=== PATIENT | female | born 1955 | race Caucasian/White ===

== ENCOUNTER 2018-09-27 19:10 | Inpatient (IN) | payer MEDICAID, OTHER ==
[~2018-09-27] VITALS: Ht 152.4 cm; Wt 48.8 kg
[2018-09-27] MEDS ORDERED: methylPREDNISolone SOD SUCC 125 MG/2 ML ONE (19:29)
[2018-09-27] MEDS ORDERED: SODIUM CHLORIDE FLUSH 10ML SYR IVF ONE (19:30)
[2018-09-27] MEDS ORDERED: methylPREDNISolone SOD SUCC 125 MG/2 ML IVP ONE (19:30)
[2018-09-27] MEDS ORDERED: PLEASE ENTER HEIGHT AND WEIGHT MC SCH (19:30)
[2018-09-27] MEDS ORDERED: PLEASE ENTER ALLERGIES MC SCH (19:30)
[2018-09-27] MEDS ORDERED: ALBUTEROL/IPRATROPIUM 2.5MG/0.5MG, 3 ML NPPB SCH (19:30)
[2018-09-27 19:59] LABS: ALANINE AMINOTRANSFERASE 20 U/L (12-78); ALBUMIN 2.2 g/dL (3.4-5.0); CALCIUM 10.4 mg/dL (8.5-10.1); CHLORIDE 114 mmol/L (98-107); CREATININE 1.11 mg/dL (0.55-1.02); INTERNATIONAL NORMALIZED RATIO 1.05 (0.93-1.1); PROTHROMBIN TIME 11.1 Seconds (9.6-11.5)
[2018-09-27] MEDS ORDERED: HYDROcodone/APAP 5/325 TABLET ONE (20:00)
[2018-09-27] MEDS ORDERED: HYDROcodone/APAP 5/325 TABLET PO ONE (20:00)
[2018-09-27 20:03] LABS: ALKALINE PHOSPHATASE 174 U/L (45-117); BILIRUBIN,TOTAL 0.3 mg/dL (0.2-1.0); TOTAL PROTEIN 7.8 g/dL (6.4-8.2)
[2018-09-27 20:08] LABS: MEAN CORPUSCULAR HEMOGLOBIN 24.7 pg (27.0-34.8); MEAN CORPUSCULAR HGB CONC 32.2 g/dL (32.4-35.8); MEAN CORPUSCULAR VOLUME 76.6 fL (80-100); MEAN PLATELET VOLUME 6.5 fL (7.4-10.4); RED BLOOD COUNT 4.13 x10^6/uL (3.82-5.3); RED CELL DISTRIBUTION WIDTH 17.3 % (9.6-15.2)
[2018-09-27 20:12] LABS: ANION GAP 12 mmol/L (5-15)
[2018-09-27 20:13] LABS: PLATELET COUNT 1360 x10^3/uL (130-400)
[2018-09-27] MEDS ORDERED: NS + 40MEQ KCL 1,000 ML IV ONE ×2 (20:18→20:31)
[2018-09-27] MEDS ORDERED: CEFTRIAXONE PMX 1GM/50ML 0 ML ONE (20:21)
[2018-09-27] MEDS ORDERED: POTASSIUM CHLORIDE 20 MEQ TAB.ER.PRT ONE (20:21)
[2018-09-27 20:29] LABS: MD YES
[2018-09-27] MEDS ORDERED: POTASSIUM CHLORIDE 20 MEQ TAB.ER.PRT PO ONE (20:30)
[2018-09-27] MEDS ORDERED: CEFTRIAXONE PMX 1GM/50ML 50 ML IV SCH (20:30)
[2018-09-27] MEDS ORDERED: AZITHROMYCIN 500 MG in SODIUM CHLORIDE 0.9% 250 ML IVPB ONE (20:30)
[2018-09-27 20:33] LABS: BAND#(MANUAL) 0.58 x10^3/uL; BANDS%(MANUAL) 2 % (0-7); LYMPH#(MANUAL) 2.33 x10^3/uL (1-3.4); LYMPHS% (MANUAL) 8 % (22-44); MONOS#(MANUAL) 1.75 x10^3/uL (0.3-2.7); MONOS% (MANUAL) 6 % (2-9); SEG#(MANUAL) 24.44 x10^3/uL (1.8-6.8); SEGS% (MANUAL) 84 % (42-75)
[2018-09-27 20:38] LABS: ANISOCYTOSIS 1+
[2018-09-27 20:39] LABS: MICROCYTOSIS 1+; POLYCHROMASIA 1+
[2018-09-27 20:41] LABS: <PLATELET ESTIMATE> INCREASED; <PLT MORPHOLOGY> NORMAL PLT MORPH
[2018-09-27] MEDS ORDERED: CEFTRIAXONE PMX 1GM/50ML 50 ML ONE (20:48)
[2018-09-27] MEDS ORDERED: SODIUM CHLORIDE FLUSH 10ML SYR IVF PRN (21:00)
[2018-09-27 21:11] LABS: ABSOLUTE RETICS # 0.093 x10^6/uL (0.5-2.5); RED BLOOD COUNT 4.12 x10^6/uL (3.82-5.3); RETICULOCYTE COUNT % 2.26 % (0.5-1.5)
[2018-09-27] MEDS ORDERED: ALBUTEROL/IPRATROPIUM 2.5MG/0.5MG, 3 ML NPPB PRN (21:30)
[2018-09-27] MEDS ORDERED: GUAIFENESIN/COD200MG-20MG/10ML LIQUID PO PRN (21:30)
[2018-09-27] MEDS ORDERED: hydrALAzine 20 MG/ML, 1ML IVPush PRN (21:30)
[2018-09-27] MEDS ORDERED: VANCOMYCIN PER PHARMACY MC PRN (21:30)
[2018-09-27] MEDS ORDERED: DOCUSATE 100 MG CAPSULE PO PRN (21:30)
[2018-09-27] MEDS ORDERED: ONDANSETRON 2MG/ML, 2ML IVPush PRN (21:30)
[2018-09-27] MEDS ORDERED: PHARMACOKINETIC CONSULTATION MC ONE (22:00)
[2018-09-27] MEDS ORDERED: PHARMACOKINETIC MONITORING MC PRN (22:00)
[2018-09-27] MEDS: PIPERACILLIN/TAZO/PMX 3.375GM 50 ML IV SCH (22:37)
[2018-09-27] MEDS: POTASSIUM CHLORIDE 20 MEQ TAB.ER.PRT PO SCH (22:38)
[2018-09-27] MEDS ORDERED: AMLO-150 PO (22:51)
[2018-09-27] MEDS ORDERED: PRED10TA PO (22:51)
[2018-09-27] MEDS ORDERED: ACET325C5 PO (22:51)
[2018-09-27] MEDS ORDERED: VANCOMYCIN 1,000 MG in SODIUM CHLORIDE 0.9% 100 ML IV ONE (23:00)
[2018-09-27] MEDS ORDERED: BUDE10.2 INH (23:03)
[2018-09-27 23:21] VITALS: BP 116/75
[2018-09-28] MEDS: methylPREDNISolone SOD SUCC 125 MG/2 ML IVPush SCH ×4 (00:18→16:49)
[2018-09-28] MEDS: POTASSIUM CHLORIDE 20 MEQ TAB.ER.PRT PO SCH (00:18)
[2018-09-28] MEDS: ACETAMINOPHEN 325 MG TABLET PO PRN (00:46)
[2018-09-28] MEDS ORDERED: POTASSIUM CHLORIDE 20 MEQ TAB.ER.PRT PO ONE ×2 (01:30→09:00)
[2018-09-28] MEDS ORDERED: SODIUM CHLORIDE 0.9% 1,000 ML IV SCH (01:30)
[2018-09-28 01:56] VITALS: BP 108/71
[2018-09-28] MEDS ORDERED: ASA/APAP/ CAFFEINE TABLET PO ONE (02:30)
[2018-09-28] MEDS: ALBUTEROL/IPRATROPIUM 2.5MG/0.5MG, 3 ML NPPB SCH ×6 (03:00→23:00)
[2018-09-28 04:13] LABS: OCCULT BLOOD NEGATIVE (NEGATIVE)
[2018-09-28] MEDS: PIPERACILLIN/TAZO/PMX 3.375GM 50 ML IV SCH ×2 (05:36→08:57)
[2018-09-28 06:26] LABS: MEAN CORPUSCULAR HEMOGLOBIN 25.3 pg (27.0-34.8); MEAN CORPUSCULAR HGB CONC 32.4 g/dL (32.4-35.8); MEAN PLATELET VOLUME 6.4 fL (7.4-10.4); RED BLOOD COUNT 3.47 x10^6/uL (3.82-5.3); RED CELL DISTRIBUTION WIDTH 17.5 % (9.6-15.2)
[2018-09-28 06:28] LABS: PLATELET COUNT 1104 x10^3/uL (130-400)
[2018-09-28 06:35] LABS: ANION GAP 11 mmol/L (5-15); CHLORIDE 117 mmol/L (98-107); CREATININE 1.02 mg/dL (0.55-1.02)
[2018-09-28 06:38] LABS: HCT (SEDRATE) 27.1 % (34.6-47.8)
[2018-09-28 06:39] LABS: HEMOGLOBIN A1C 6.7 % (4.2-6.3)
[2018-09-28 06:45] LABS: THYROID STIMULATING HORMONE 0.228 mIU/L (0.358-3.740)
[2018-09-28 06:49] LABS: BASOPHILS % (AUTO) 0 % (0-1); EOSINOPHILS # (AUTO) 0.01 x10^3/uL (0-0.4); EOSINOPHILS % (AUTO) 0 % (1-7); LYMPHOCYTES # (AUTO) 0.59 x10^3/uL (1-3.4); LYMPHOCYTES % (AUTO) 3 % (22-44); MD SCAN; MONOCYTES # (AUTO) 0.18 x10^3/uL (0.2-0.8); MONOCYTES % (AUTO) 1 % (2-9); NEUTROPHILS # (AUTO) 17.71 x10^3/uL (1.8-6.8); NEUTROPHILS % (AUTO) 96 % (42-75)
[2018-09-28 08:00] VITALS: BP 112/64
[2018-09-28] MEDS: FOLIC ACID 1 MG TABLET PO SCH (08:51)
[2018-09-28] MEDS: MULTIVITAMIN 1 TABLET PO SCH (08:51)
[2018-09-28] MEDS: OXYcodone IR 5MG TABLET PO PRN ×3 (08:51→16:49)
[2018-09-28] MEDS: THIAMINE 100MG TABLET PO SCH (08:52)
[2018-09-28] MEDS ORDERED: POTASSIUM CHLORIDE 40 MEQ in SODIUM CHLORIDE 0.9% 500 ML IV ONE (09:00)
[2018-09-28] MEDS ORDERED: SYMBICORT INH SCH (09:00)
[2018-09-28] MEDS: GABAPENTIN 300 MG CAPSULE PO PRN (10:30)
[2018-09-28] MEDS ORDERED: LORazepam 0.5MG TABLET PO ONE (10:30)
[2018-09-28 12:54] LABS: ANION GAP 11 mmol/L (5-15); CALCIUM 9.1 mg/dL (8.5-10.1); CHLORIDE 121 mmol/L (98-107); CREATININE 0.99 mg/dL (0.55-1.02)
[2018-09-28] MEDS ORDERED: GADOBUTROL 7.5 MMOL/7.5 ML PFS ONE (13:34)
[2018-09-28] MEDS: POTASSIUM CHLORIDE 20 MEQ in LACTATED RINGERS 1,000 ML IV SCH (15:25)
[2018-09-28] MEDS: VANCOMYCIN PMX 1GM/200ML 200 ML IV SCH (15:26)
[2018-09-28 15:30] VITALS: BP 100/68
[2018-09-28] MEDS: MEROPENEM 1 GM in SODIUM CHLORIDE 0.9% 100 ML IV SCH (16:49)
[2018-09-28] MEDS: NEUTRA PHOS K 250 MG TABLET PO SCH ×2 (16:49→20:45)
[2018-09-28 20:00] VITALS: BP 101/65
[2018-09-28 20:01] VITALS: BP 100/63
[2018-09-28 20:02] VITALS: BP 104/67
[2018-09-28] MEDS: AZITHROMYCIN 500 MG in SODIUM CHLORIDE 0.9% 250 ML IV SCH (20:44)
[2018-09-28 21:32] LABS: MICROSCOPIC AUTO
[2018-09-28 21:37] LABS: CULTURE INDICATED? YES
[2018-09-28 21:41] LABS: AMPHETAMINE SCREEN, URINE Negative (Negative); BARBITURATE SCREEN, URINE Negative (Negative); BENZODIAZEPINE SCREEN, URINE Negative (Negative); CANNABINOID SCREEN, URINE Negative (Negative); COCAINE SCREEN, URINE Negative (Negative); METHADONE SCREEN, URINE Negative (Negative); OPIATE SCREEN, URINE Positive (Negative)
[2018-09-28] MEDS ORDERED: DIPHENHYDRAMINE 25 MG CAPSULE PO ONE (22:00)
[2018-09-29] MEDS: methylPREDNISolone SOD SUCC 125 MG/2 ML IVPush SCH ×4 (00:23→17:13)
[2018-09-29] MEDS: OXYcodone IR 5MG TABLET PO PRN ×3 (00:23→17:13)
[2018-09-29] MEDS ORDERED: SODIUM CHLORIDE 0.9% 1,000 ML IV SCH (01:30)
[2018-09-29 01:43] VITALS: BP 102/68
[2018-09-29] MEDS: MEROPENEM 1 GM in SODIUM CHLORIDE 0.9% 100 ML IV SCH ×3 (01:49→22:12)
[2018-09-29] MEDS: ALBUTEROL/IPRATROPIUM 2.5MG/0.5MG, 3 ML NPPB SCH ×6 (03:00→23:00)
[2018-09-29 05:31] LABS: CHLORIDE 118 mmol/L (98-107)
[2018-09-29 05:37] LABS: ANION GAP 12 mmol/L (5-15); CALCIUM 8.2 mg/dL (8.5-10.1); CREATININE 1.29 mg/dL (0.55-1.02)
[2018-09-29 05:39] LABS: MEAN CORPUSCULAR HEMOGLOBIN 25.3 pg (27.0-34.8); MEAN CORPUSCULAR HGB CONC 32.3 g/dL (32.4-35.8); MEAN CORPUSCULAR VOLUME 78.4 fL (80-100); MEAN PLATELET VOLUME 6.6 fL (7.4-10.4); RED BLOOD COUNT 3.17 x10^6/uL (3.82-5.3); RED CELL DISTRIBUTION WIDTH 17.6 % (9.6-15.2)
[2018-09-29 05:48] LABS: PLATELET COUNT 1096 x10^3/uL (130-400)
[2018-09-29 05:58] LABS: MD YES
[2018-09-29 05:59] LABS: ANISOCYTOSIS 1+; LYMPH#(MANUAL) 0.79 x10^3/uL (1-3.4); LYMPHS% (MANUAL) 3 % (22-44); MICROCYTOSIS 1+; MONOS#(MANUAL) 0.26 x10^3/uL (0.3-2.7); MONOS% (MANUAL) 1 % (2-9); SEG#(MANUAL) 25.25 x10^3/uL (1.8-6.8); SEGS% (MANUAL) 96 % (42-75)
[2018-09-29 06:00] LABS: POLYCHROMASIA 1+
[2018-09-29 06:01] LABS: <PLATELET ESTIMATE> INCREASED
[2018-09-29 06:02] LABS: <PLT MORPHOLOGY> NORMAL PLT MORPH
[2018-09-29] MEDS ORDERED: POTASSIUM CHLORIDE 40 MEQ in SODIUM CHLORIDE 0.9% 500 ML IV ONE (07:00)
[2018-09-29 07:44] VITALS: BP 97/66
[2018-09-29] MEDS: POTASSIUM CHLORIDE 20 MEQ in LACTATED RINGERS 1,000 ML IV SCH (08:30)
[2018-09-29] MEDS: NEUTRA PHOS K 250 MG TABLET PO SCH (08:31)
[2018-09-29] MEDS: MULTIVITAMIN 1 TABLET PO SCH (08:31)
[2018-09-29] MEDS: FOLIC ACID 1 MG TABLET PO SCH (08:31)
[2018-09-29] MEDS: THIAMINE 100MG TABLET PO SCH (08:31)
[2018-09-29 09:14] LABS: CREATININE,URINE RANDOM 42.7 mg/dL
[2018-09-29 10:19] LABS: CREATININE,URINE RANDOM 42.7 mg/dL
[2018-09-29] MEDS: VANCOMYCIN PMX 1GM/200ML 200 ML IV SCH (12:25)
[2018-09-29 12:32] VITALS: BP 112/66
[2018-09-29] MEDS ORDERED: LORazepam 0.5MG TABLET PO PRN (13:00)
[2018-09-29] MEDS ORDERED: FUROSEMIDE 20 MG/2 ML IV ONE ×2 (13:30→14:00)
[2018-09-29 14:10] VITALS: BP 109/61
[2018-09-29] MEDS: ACETAMINOPHEN 325 MG TABLET PO PRN (14:15)
[2018-09-29 16:27] LABS: ALBUMIN 2.3 g/dL (3.4-5.0); ANION GAP 9 mmol/L (5-15); CHLORIDE 117 mmol/L (98-107); CREATININE 1.18 mg/dL (0.55-1.02)
[2018-09-29] MEDS ORDERED: POTASSIUM CHLORIDE 60 MEQ in SODIUM CHLORIDE 0.9% 500 ML IV ONE (17:00)
[2018-09-29] MEDS: LORazepam 0.5MG TABLET PO PRN (17:14)
[2018-09-29] MEDS ORDERED: POTASSIUM CHLORIDE 60 MEQ in SODIUM CHLORIDE 0.9% 1,000 ML IV ONE (17:30)
[2018-09-29 18:57] VITALS: BP 127/77
[2018-09-29] MEDS: OMEPRAZOLE 20 MG CAPSULE.DR PO SCH (20:08)
[2018-09-29] MEDS: AZITHROMYCIN 500 MG in SODIUM CHLORIDE 0.9% 250 ML IV SCH (20:10)
[2018-09-30] MEDS: methylPREDNISolone SOD SUCC 125 MG/2 ML IVPush SCH ×4 (00:45→18:25)
[2018-09-30 01:16] VITALS: BP 118/77
[2018-09-30] MEDS: ALBUTEROL/IPRATROPIUM 2.5MG/0.5MG, 3 ML NPPB SCH ×6 (02:14→23:10)
[2018-09-30] MEDS: OXYcodone IR 5MG TABLET PO PRN ×3 (02:21→18:25)
[2018-09-30] MEDS: LORazepam 0.5MG TABLET PO PRN ×2 (02:22→12:56)
[2018-09-30] MEDS: MEROPENEM 1 GM in SODIUM CHLORIDE 0.9% 100 ML IV SCH ×3 (05:21→23:09)
[2018-09-30 05:57] LABS: MEAN CORPUSCULAR HEMOGLOBIN 24.9 pg (27.0-34.8); MEAN CORPUSCULAR HGB CONC 32.1 g/dL (32.4-35.8); MEAN CORPUSCULAR VOLUME 77.8 fL (80-100); MEAN PLATELET VOLUME 6.6 fL (7.4-10.4); PLATELET COUNT 961 x10^3/uL (130-400); RED BLOOD COUNT 3.07 x10^6/uL (3.82-5.3); RED CELL DISTRIBUTION WIDTH 17.8 % (9.6-15.2)
[2018-09-30 06:02] LABS: ALBUMIN 2.1 g/dL (3.4-5.0); ANION GAP 7 mmol/L (5-15); CALCIUM 7.3 mg/dL (8.5-10.1); CHLORIDE 122 mmol/L (98-107); CREATININE 0.84 mg/dL (0.55-1.02)
[2018-09-30 06:15] LABS: BASOPHILS % (AUTO) 0 % (0-1); EOSINOPHILS # (AUTO) 0.01 x10^3/uL (0-0.4); EOSINOPHILS % (AUTO) 0 % (1-7); LYMPHOCYTES # (AUTO) 0.63 x10^3/uL (1-3.4); LYMPHOCYTES % (AUTO) 3 % (22-44); MD SCAN; MONOCYTES # (AUTO) 0.67 x10^3/uL (0.2-0.8); MONOCYTES % (AUTO) 3 % (2-9); NEUTROPHILS # (AUTO) 18.28 x10^3/uL (1.8-6.8); NEUTROPHILS % (AUTO) 93 % (42-75)
[2018-09-30] MEDS: VANCOMYCIN PMX 1GM/200ML 200 ML IV SCH (06:21)
[2018-09-30 07:38] VITALS: BP 108/70
[2018-09-30] MEDS: OMEPRAZOLE 20 MG CAPSULE.DR PO SCH ×2 (08:15→20:09)
[2018-09-30] MEDS: FOLIC ACID 1 MG TABLET PO SCH (08:15)
[2018-09-30] MEDS: THIAMINE 100MG TABLET PO SCH (08:15)
[2018-09-30] MEDS: MULTIVITAMIN 1 TABLET PO SCH (08:16)
[2018-09-30] MEDS ORDERED: POTASSIUM CHLORIDE 10% 20 MEQ/15 ML UDC PO ONE (08:30)
[2018-09-30] MEDS ORDERED: FUROSEMIDE 20 MG/2 ML IV ONE (08:30)
[2018-09-30 12:02] VITALS: BP 116/71
[2018-09-30] MEDS: ACETAMINOPHEN 325 MG TABLET PO PRN (12:58)
[2018-09-30] MEDS: AZITHROMYCIN 500 MG in SODIUM CHLORIDE 0.9% 250 ML IV SCH (20:10)
[2018-09-30 21:50] VITALS: BP 111/59
[2018-10-01] MEDS: VANCOMYCIN PMX 1GM/200ML 200 ML IV SCH ×2 (00:43→18:19)
[2018-10-01] MEDS: OXYcodone IR 5MG TABLET PO PRN ×4 (00:43→22:07)
[2018-10-01] MEDS: methylPREDNISolone SOD SUCC 125 MG/2 ML IVPush SCH ×4 (00:43→18:17)
[2018-10-01 02:08] VITALS: BP 120/75
[2018-10-01] MEDS: ALBUTEROL/IPRATROPIUM 2.5MG/0.5MG, 3 ML NPPB SCH ×5 (03:00→20:43)
[2018-10-01 04:40] LABS: BASOPHILS # (AUTO) 0.01 x10^3/uL (0-0.1); BASOPHILS % (AUTO) 0 % (0-1); EOSINOPHILS % (AUTO) 0 % (1-7); LYMPHOCYTES # (AUTO) 0.39 x10^3/uL (1-3.4); LYMPHOCYTES % (AUTO) 3 % (22-44); MD NO; MEAN CORPUSCULAR VOLUME 77.5 fL (80-100); MEAN PLATELET VOLUME 6.5 fL (7.4-10.4); MONOCYTES # (AUTO) 0.56 x10^3/uL (0.2-0.8); MONOCYTES % (AUTO) 4 % (2-9); NEUTROPHILS # (AUTO) 12.85 x10^3/uL (1.8-6.8); NEUTROPHILS % (AUTO) 93 % (42-75); PLATELET COUNT 924 x10^3/uL (130-400); RED BLOOD COUNT 3.14 x10^6/uL (3.82-5.3); RED CELL DISTRIBUTION WIDTH 18.2 % (9.6-15.2)
[2018-10-01 04:48] LABS: ANION GAP 10 mmol/L (5-15); CHLORIDE 120 mmol/L (98-107)
[2018-10-01 04:52] LABS: ALBUMIN 2.2 g/dL (3.4-5.0); CALCIUM 7.4 mg/dL (8.5-10.1); CREATININE 0.76 mg/dL (0.55-1.02)
[2018-10-01] MEDS: MEROPENEM 1 GM in SODIUM CHLORIDE 0.9% 100 ML IV SCH ×3 (06:36→23:19)
[2018-10-01 07:36] VITALS: BP 125/77
[2018-10-01] MEDS ORDERED: POTASSIUM CHLORIDE 20 MEQ TAB.ER.PRT PO SCH (08:00)
[2018-10-01 08:24] LABS: OCCULT BLOOD NEGATIVE (NEGATIVE)
[2018-10-01] MEDS: INSULIN LISPRO 100 UNITS/ML, PEN SQ-INSULIN SCH ×4 (09:16→21:17)
[2018-10-01] MEDS: SODIUM BICARBONATE 650 MG TABLET PO SCH ×2 (09:16→21:17)
[2018-10-01] MEDS: MULTIVITAMIN 1 TABLET PO SCH (09:16)
[2018-10-01] MEDS: OMEPRAZOLE 20 MG CAPSULE.DR PO SCH ×2 (09:16→21:17)
[2018-10-01] MEDS: FOLIC ACID 1 MG TABLET PO SCH (09:17)
[2018-10-01] MEDS: THIAMINE 100MG TABLET PO SCH (09:17)
[2018-10-01] MEDS: POTASSIUM CHLORIDE 20 MEQ PACKET PO SCH ×2 (09:17→21:18)
[2018-10-01] MEDS: ASPIRIN 81 MG TABLET CHEW PO SCH (09:17)
[2018-10-01] MEDS ORDERED: FUROSEMIDE 20 MG/2 ML IV ONE (12:00)
[2018-10-01] MEDS: ENOXAPARIN 40 MG/0.4 ML SQ SCH (12:56)
[2018-10-01] MEDS: GUAIFENESIN 200 MG TABLET PO SCH ×3 (12:59→21:18)
[2018-10-01 13:07] VITALS: BP 131/79
[2018-10-01] MEDS: FUROSEMIDE 20 MG TABLET PO SCH (16:30)
[2018-10-01 20:15] VITALS: BP 141/82
[2018-10-01] MEDS: AZITHROMYCIN 500 MG in SODIUM CHLORIDE 0.9% 250 ML IV SCH (21:17)
[2018-10-02] MEDS: methylPREDNISolone SOD SUCC 125 MG/2 ML IVPush SCH ×5 (00:40→23:52)
[2018-10-02 01:13] VITALS: BP 127/77
[2018-10-02] MEDS: ALBUTEROL/IPRATROPIUM 2.5MG/0.5MG, 3 ML NPPB SCH ×6 (03:00→23:40)
[2018-10-02 05:19] LABS: BASOPHILS % (AUTO) 0 % (0-1); EOSINOPHILS # (AUTO) 0.01 x10^3/uL (0-0.4); EOSINOPHILS % (AUTO) 0 % (1-7); LYMPHOCYTES # (AUTO) 0.96 x10^3/uL (1-3.4); LYMPHOCYTES % (AUTO) 9 % (22-44); MD NO; MEAN CORPUSCULAR HEMOGLOBIN 25.1 pg (27.0-34.8); MEAN CORPUSCULAR HGB CONC 32.3 g/dL (32.4-35.8); MEAN CORPUSCULAR VOLUME 77.8 fL (80-100); MEAN PLATELET VOLUME 6.5 fL (7.4-10.4); MONOCYTES # (AUTO) 0.26 x10^3/uL (0.2-0.8); MONOCYTES % (AUTO) 3 % (2-9); NEUTROPHILS # (AUTO) 9.06 x10^3/uL (1.8-6.8); NEUTROPHILS % (AUTO) 88 % (42-75); PLATELET COUNT 893 x10^3/uL (130-400); RED BLOOD COUNT 3.17 x10^6/uL (3.82-5.3); RED CELL DISTRIBUTION WIDTH 18.8 % (9.6-15.2)
[2018-10-02 05:22] LABS: ALBUMIN 2.3 g/dL (3.4-5.0); ANION GAP 10 mmol/L (5-15); CHLORIDE 119 mmol/L (98-107)
[2018-10-02 05:26] LABS: ALANINE AMINOTRANSFERASE 36 U/L (12-78); ALKALINE PHOSPHATASE 116 U/L (45-117); BILIRUBIN,TOTAL 0.3 mg/dL (0.2-1.0); CREATININE 0.81 mg/dL (0.55-1.02); TOTAL PROTEIN 6.4 g/dL (6.4-8.2)
[2018-10-02] MEDS: OXYcodone IR 5MG TABLET PO PRN ×4 (05:28→23:42)
[2018-10-02] MEDS: GUAIFENESIN 200 MG TABLET PO SCH ×4 (05:28→20:44)
[2018-10-02 06:34] VITALS: BP 131/77
[2018-10-02] MEDS: MEROPENEM 1 GM in SODIUM CHLORIDE 0.9% 100 ML IV SCH ×3 (08:12→23:42)
[2018-10-02] MEDS: INSULIN LISPRO 100 UNITS/ML, PEN SQ-INSULIN SCH ×4 (08:13→20:46)
[2018-10-02] MEDS: MULTIVITAMIN 1 TABLET PO SCH (08:13)
[2018-10-02] MEDS: FUROSEMIDE 20 MG TABLET PO SCH ×2 (08:13→17:11)
[2018-10-02] MEDS: POTASSIUM CHLORIDE 20 MEQ PACKET PO SCH ×3 (08:13→20:43)
[2018-10-02] MEDS: SODIUM BICARBONATE 650 MG TABLET PO SCH ×2 (08:13→20:44)
[2018-10-02] MEDS: THIAMINE 100MG TABLET PO SCH (08:14)
[2018-10-02] MEDS: FOLIC ACID 1 MG TABLET PO SCH (08:14)
[2018-10-02] MEDS: ASPIRIN 81 MG TABLET CHEW PO SCH (08:14)
[2018-10-02] MEDS: OMEPRAZOLE 20 MG CAPSULE.DR PO SCH ×2 (08:14→20:43)
[2018-10-02] MEDS: VANCOMYCIN PMX 1GM/200ML 200 ML IV SCH (12:29)
[2018-10-02 12:35] VITALS: BP 125/76
[2018-10-02] MEDS: ENOXAPARIN 40 MG/0.4 ML SQ SCH (12:40)
[2018-10-02] MEDS: AZITHROMYCIN 500 MG in SODIUM CHLORIDE 0.9% 250 ML IV SCH (20:43)
[2018-10-02 21:10] VITALS: BP 134/77
[2018-10-03 01:25] VITALS: BP 123/78
[2018-10-03] MEDS: ALBUTEROL/IPRATROPIUM 2.5MG/0.5MG, 3 ML NPPB SCH ×6 (03:00→22:26)
[2018-10-03 05:17] LABS: MEAN CORPUSCULAR HGB CONC 32.4 g/dL (32.4-35.8); MEAN CORPUSCULAR VOLUME 77.2 fL (80-100); MEAN PLATELET VOLUME 6.5 fL (7.4-10.4); PLATELET COUNT 905 x10^3/uL (130-400); RED BLOOD COUNT 3.19 x10^6/uL (3.82-5.3); RED CELL DISTRIBUTION WIDTH 18.6 % (9.6-15.2)
[2018-10-03 05:25] LABS: ANION GAP 13 mmol/L (5-15); CALCIUM 6.1 mg/dL (8.5-10.1); CHLORIDE 119 mmol/L (98-107); CREATININE 0.73 mg/dL (0.55-1.02)
[2018-10-03] MEDS: GUAIFENESIN 200 MG TABLET PO SCH ×4 (05:54→20:47)
[2018-10-03] MEDS: methylPREDNISolone SOD SUCC 125 MG/2 ML IVPush SCH ×3 (05:54→17:03)
[2018-10-03] MEDS: VANCOMYCIN PMX 1GM/200ML 200 ML IV SCH (05:54)
[2018-10-03] MEDS: OXYcodone IR 5MG TABLET PO PRN ×2 (06:06→15:44)
[2018-10-03 06:19] LABS: MD YES
[2018-10-03 06:21] LABS: LYMPH#(MANUAL) 0.11 x10^3/uL (1-3.4); LYMPHS% (MANUAL) 1 % (22-44); MONOS#(MANUAL) 0.53 x10^3/uL (0.3-2.7); MONOS% (MANUAL) 5 % (2-9); SEG#(MANUAL) 9.87 x10^3/uL (1.8-6.8); SEGS% (MANUAL) 94 % (42-75)
[2018-10-03 06:22] LABS: ANISOCYTOSIS 1+; HYPOCHROMIA 1+; MICROCYTOSIS 1+; POLYCHROMASIA 1+
[2018-10-03 06:23] LABS: <PLATELET ESTIMATE> INCREASED; <PLT MORPHOLOGY> NORMAL PLT MORPH
[2018-10-03 06:41] VITALS: BP 131/82
[2018-10-03] MEDS ORDERED: POTASSIUM CHLORIDE 40 MEQ in SODIUM CHLORIDE 0.9% 500 ML IV ONE (07:30)
[2018-10-03] MEDS: MEROPENEM 1 GM in SODIUM CHLORIDE 0.9% 100 ML IV SCH ×2 (08:08→17:02)
[2018-10-03] MEDS: POTASSIUM CHLORIDE 20 MEQ PACKET PO SCH ×3 (08:49→20:46)
[2018-10-03] MEDS: OMEPRAZOLE 20 MG CAPSULE.DR PO SCH ×2 (08:49→20:47)
[2018-10-03] MEDS: K-LYTE 25 MEQ TABLET.EFF PO SCH (08:49)
[2018-10-03] MEDS: FUROSEMIDE 20 MG TABLET PO SCH ×2 (08:50→17:02)
[2018-10-03] MEDS: INSULIN LISPRO 100 UNITS/ML, PEN SQ-INSULIN SCH ×4 (08:50→20:40)
[2018-10-03] MEDS: FOLIC ACID 1 MG TABLET PO SCH (08:51)
[2018-10-03] MEDS: ASPIRIN 81 MG TABLET CHEW PO SCH (08:52)
[2018-10-03] MEDS: MULTIVITAMIN 1 TABLET PO SCH (08:52)
[2018-10-03] MEDS: THIAMINE 100MG TABLET PO SCH (08:52)
[2018-10-03] MEDS: CALCIUM CARBONATE 500 MG TABLET PO SCH ×3 (08:52→20:47)
[2018-10-03] MEDS: MAGNESIUM OXIDE 400 MG TABLET PO SCH ×2 (12:10→20:46)
[2018-10-03] MEDS: ENOXAPARIN 40 MG/0.4 ML SQ SCH (12:10)
[2018-10-03 13:25] VITALS: BP 135/84
[2018-10-03 20:00] VITALS: BP 120/76
[2018-10-03] MEDS: AZITHROMYCIN 500 MG in SODIUM CHLORIDE 0.9% 250 ML IV SCH (22:03)
[2018-10-04] MEDS: OXYcodone IR 5MG TABLET PO PRN ×3 (01:11→20:35)
[2018-10-04] MEDS: MEROPENEM 1 GM in SODIUM CHLORIDE 0.9% 100 ML IV SCH ×3 (01:11→17:40)
[2018-10-04] MEDS: methylPREDNISolone SOD SUCC 125 MG/2 ML IVPush SCH ×4 (01:11→17:40)
[2018-10-04 01:48] VITALS: BP 130/79
[2018-10-04] MEDS: ALBUTEROL/IPRATROPIUM 2.5MG/0.5MG, 3 ML NPPB SCH ×6 (02:12→22:48)
[2018-10-04] MEDS: GUAIFENESIN 200 MG TABLET PO SCH ×4 (05:33→20:43)
[2018-10-04 06:11] LABS: MEAN CORPUSCULAR HEMOGLOBIN 24.6 pg (27.0-34.8); RED BLOOD COUNT 3.28 x10^6/uL (3.82-5.3); RED CELL DISTRIBUTION WIDTH 18.6 % (9.6-15.2)
[2018-10-04 06:18] LABS: CHLORIDE 123 mmol/L (98-107)
[2018-10-04 06:27] LABS: ALANINE AMINOTRANSFERASE 62 U/L (12-78); ALBUMIN 2.4 g/dL (3.4-5.0); ALKALINE PHOSPHATASE 126 U/L (45-117); ANION GAP 11 mmol/L (5-15); BILIRUBIN,TOTAL 0.3 mg/dL (0.2-1.0); CREATININE 0.74 mg/dL (0.55-1.02); TOTAL PROTEIN 6.2 g/dL (6.4-8.2)
[2018-10-04 06:32] LABS: BASOPHILS % (AUTO) 0 % (0-1); EOSINOPHILS # (AUTO) 0.06 x10^3/uL (0-0.4); EOSINOPHILS % (AUTO) 1 % (1-7); LYMPHOCYTES # (AUTO) 0.24 x10^3/uL (1-3.4); LYMPHOCYTES % (AUTO) 2 % (22-44); MD NO; MONOCYTES # (AUTO) 0.56 x10^3/uL (0.2-0.8); MONOCYTES % (AUTO) 4 % (2-9); NEUTROPHILS # (AUTO) 12.73 x10^3/uL (1.8-6.8); NEUTROPHILS % (AUTO) 94 % (42-75); PLATELET COUNT 916 x10^3/uL (130-400)
[2018-10-04 06:45] VITALS: BP 129/81
[2018-10-04] MEDS: MAGNESIUM OXIDE 400 MG TABLET PO SCH ×2 (08:45→20:37)
[2018-10-04] MEDS: CALCIUM CARBONATE 500 MG TABLET PO SCH ×3 (08:45→20:36)
[2018-10-04] MEDS: MULTIVITAMIN 1 TABLET PO SCH (08:45)
[2018-10-04] MEDS: INSULIN LISPRO 100 UNITS/ML, PEN SQ-INSULIN SCH ×4 (08:45→21:09)
[2018-10-04] MEDS: OMEPRAZOLE 20 MG CAPSULE.DR PO SCH ×2 (08:45→21:00)
[2018-10-04] MEDS: ASPIRIN 81 MG TABLET CHEW PO SCH (08:45)
[2018-10-04] MEDS: FUROSEMIDE 20 MG TABLET PO SCH ×2 (08:46→17:00)
[2018-10-04] MEDS: FOLIC ACID 1 MG TABLET PO SCH (08:46)
[2018-10-04] MEDS: THIAMINE 100MG TABLET PO SCH (08:47)
[2018-10-04] MEDS: POTASSIUM CHLORIDE 20 MEQ PACKET PO SCH ×3 (08:47→20:38)
[2018-10-04] MEDS: K-LYTE 25 MEQ TABLET.EFF PO SCH (08:54)
[2018-10-04 10:10] LABS: HCT (SEDRATE) 25.3 % (34.6-47.8)
[2018-10-04 12:27] VITALS: BP 139/71
[2018-10-04] MEDS: ENOXAPARIN 40 MG/0.4 ML SQ SCH (13:20)
[2018-10-04] MEDS: IRON SUCROSE COMPLEX 100MG/5ML IV SCH ×2 (17:40→17:50)
[2018-10-04 19:58] VITALS: BP 132/68
[2018-10-04 23:46] LABS: CLOSTRIDIUM DIFFICILE ANTIGEN NEGATIVE; CLOSTRIDIUM DIFFICILE TOXIN NEGATIVE (Negative)
[2018-10-05] MEDS: GABAPENTIN 300 MG CAPSULE PO PRN (00:12)
[2018-10-05] MEDS: OMEPRAZOLE 20 MG CAPSULE.DR PO SCH ×2 (00:12→21:00)
[2018-10-05] MEDS: methylPREDNISolone SOD SUCC 125 MG/2 ML IVPush SCH ×5 (00:30→18:48)
[2018-10-05] MEDS: MEROPENEM 1 GM in SODIUM CHLORIDE 0.9% 100 ML IV SCH ×3 (01:00→17:04)
[2018-10-05 01:25] VITALS: BP 132/75
[2018-10-05] MEDS: AZITHROMYCIN 500 MG in SODIUM CHLORIDE 0.9% 250 ML IV SCH ×3 (03:00→21:58)
[2018-10-05] MEDS: ALBUTEROL/IPRATROPIUM 2.5MG/0.5MG, 3 ML NPPB SCH ×5 (03:00→23:00)
[2018-10-05] MEDS: OXYcodone IR 5MG TABLET PO PRN ×2 (04:46→21:41)
[2018-10-05] MEDS: GUAIFENESIN 200 MG TABLET PO SCH ×4 (04:49→21:00)
[2018-10-05 06:04] LABS: MEAN CORPUSCULAR VOLUME 78.1 fL (80-100); MEAN PLATELET VOLUME 7.1 fL (7.4-10.4); PLATELET COUNT 790 x10^3/uL (130-400); RED BLOOD COUNT 3.43 x10^6/uL (3.82-5.3)
[2018-10-05 06:10] LABS: ALBUMIN 2.5 g/dL (3.4-5.0); ANION GAP 11 mmol/L (5-15); CALCIUM 7.1 mg/dL (8.5-10.1); CHLORIDE 121 mmol/L (98-107); CREATININE 0.53 mg/dL (0.55-1.02)
[2018-10-05 06:24] LABS: MD YES
[2018-10-05 06:27] LABS: ANISOCYTOSIS 1+; LYMPH#(MANUAL) 0.88 x10^3/uL (1-3.4); LYMPHS% (MANUAL) 5 % (22-44); MICROCYTOSIS 1+; MONOS#(MANUAL) 2.28 x10^3/uL (0.3-2.7); MONOS% (MANUAL) 13 % (2-9); SEG#(MANUAL) 14.35 x10^3/uL (1.8-6.8); SEGS% (MANUAL) 82 % (42-75)
[2018-10-05 06:28] LABS: <PLATELET ESTIMATE> INCREASED; <PLT MORPHOLOGY> NORMAL PLT MORPH; HYPOCHROMIA 1+; POLYCHROMASIA 1+
[2018-10-05 07:50] VITALS: BP 139/82
[2018-10-05] MEDS: INSULIN LISPRO 100 UNITS/ML, PEN SQ-INSULIN SCH ×4 (08:00→21:00)
[2018-10-05] MEDS: POTASSIUM CHLORIDE 20 MEQ PACKET PO SCH ×2 (09:00→09:15)
[2018-10-05] MEDS: K-LYTE 25 MEQ TABLET.EFF PO SCH ×2 (09:00→09:16)
[2018-10-05] MEDS: IRON SUCROSE COMPLEX 100MG/5ML IV SCH (09:14)
[2018-10-05] MEDS: FOLIC ACID 1 MG TABLET PO SCH (09:15)
[2018-10-05] MEDS: FUROSEMIDE 20 MG TABLET PO SCH ×2 (09:15→17:04)
[2018-10-05] MEDS: MAGNESIUM OXIDE 400 MG TABLET PO SCH ×2 (09:15→22:22)
[2018-10-05] MEDS: MULTIVITAMIN 1 TABLET PO SCH (09:15)
[2018-10-05] MEDS: ASPIRIN 81 MG TABLET CHEW PO SCH (09:15)
[2018-10-05] MEDS: THIAMINE 100MG TABLET PO SCH (09:16)
[2018-10-05] MEDS: CALCIUM CARBONATE 500 MG TABLET PO SCH ×3 (09:16→21:00)
[2018-10-05 12:05] VITALS: BP 130/69
[2018-10-05] MEDS: ENOXAPARIN 40 MG/0.4 ML SQ SCH (13:07)
[2018-10-05] MEDS ORDERED: POTASSIUM CHLORIDE 20 MEQ TAB.ER.PRT PO SCH ×2 (16:00→21:00)
[2018-10-05] MEDS ORDERED: SODIUM PHOSPHATE 20 MMOL in SODIUM CHLORIDE 0.9% 500 ML IV ONE (16:30)
[2018-10-05 19:12] VITALS: BP 149/89
[2018-10-05] MEDS ORDERED: LACTOBACILLUS CHEW TABLET PO SCH (21:30)
[2018-10-06] MEDS: methylPREDNISolone SOD SUCC 125 MG/2 ML IVPush SCH ×2 (00:30→06:30)
[2018-10-06] MEDS: MEROPENEM 1 GM in SODIUM CHLORIDE 0.9% 100 ML IV SCH (01:00)
[2018-10-06 01:29] VITALS: BP 129/79
[2018-10-06] MEDS: ALBUTEROL/IPRATROPIUM 2.5MG/0.5MG, 3 ML NPPB SCH ×2 (02:43→06:47)
[2018-10-06 05:20] LABS: BASOPHILS % (AUTO) 0 % (0-1); EOSINOPHILS # (AUTO) 0.29 x10^3/uL (0-0.4); EOSINOPHILS % (AUTO) 2 % (1-7); LYMPHOCYTES % (AUTO) 3 % (22-44); MD NO; MEAN CORPUSCULAR HEMOGLOBIN 24.7 pg (27.0-34.8); MEAN CORPUSCULAR HGB CONC 31.7 g/dL (32.4-35.8); MEAN CORPUSCULAR VOLUME 77.8 fL (80-100); MEAN PLATELET VOLUME 7.3 fL (7.4-10.4); MONOCYTES # (AUTO) 1.21 x10^3/uL (0.2-0.8); MONOCYTES % (AUTO) 8 % (2-9); NEUTROPHILS # (AUTO) 13.32 x10^3/uL (1.8-6.8); NEUTROPHILS % (AUTO) 87 % (42-75); PLATELET COUNT 753 x10^3/uL (130-400); RED BLOOD COUNT 3.45 x10^6/uL (3.82-5.3); RED CELL DISTRIBUTION WIDTH 19.8 % (9.6-15.2)
[2018-10-06 05:32] LABS: CALCIUM 7.2 mg/dL (8.5-10.1); CHLORIDE 117 mmol/L (98-107)
[2018-10-06 05:37] LABS: ANION GAP 11 mmol/L (5-15); CREATININE 0.58 mg/dL (0.55-1.02)
[2018-10-06] MEDS: GUAIFENESIN 200 MG TABLET PO SCH (06:00)
[2018-10-06 08:01] VITALS: BP 133/77
[2018-10-06] MEDS: INSULIN LISPRO 100 UNITS/ML, PEN SQ-INSULIN SCH (08:55)
[2018-10-06] MEDS ORDERED: ALBUTEROL/IPRATROPIUM 2.5MG/0.5MG, 3 ML NPPB SCH (15:00)
== END 2018-10-06 10:37 | disposition left against medical advice (07) | DRG 871 ==
LOC: ED 20:58 → EDIP 21:08 → 4WST 21:54
PROVIDERS: ADMIT Internal Medicine; ATTEND Internal Medicine
DX: A41.9 Sepsis, unspecified organism (principal); J15.9 Unspecified bacterial pneumonia; E43 Unspecified severe protein-calorie malnutrition; N17.0 Acute kidney failure with tubular necrosis; I50.43 Acute on chronic combined systolic (congestive) and diastolic (congestive) heart failure; J96.21 Acute and chronic respiratory failure with hypoxia; L97.929 Non-pressure chronic ulcer of unspecified part of left lower leg with unspecified severity; B37.49 Other urogenital candidiasis; E87.0 Hyperosmolality and hypernatremia; J44.0 Chronic obstructive pulmonary disease with (acute) lower respiratory infection; J44.1 Chronic obstructive pulmonary disease with (acute) exacerbation; J84.9 Interstitial pulmonary disease, unspecified; R65.20 Severe sepsis without septic shock; F32.9 Major depressive disorder, single episode, unspecified; B18.2 Chronic viral hepatitis C; D47.3 Essential (hemorrhagic) thrombocythemia; D50.9 Iron deficiency anemia, unspecified; D63.8 Anemia in other chronic diseases classified elsewhere; E83.39 Other disorders of phosphorus metabolism; E83.42 Hypomagnesemia; E83.51 Hypocalcemia; E87.6 Hypokalemia; F11.10 Opioid abuse, uncomplicated; F17.210 Nicotine dependence, cigarettes, uncomplicated; I07.1 Rheumatic tricuspid insufficiency; I11.0 Hypertensive heart disease with heart failure; I27.20 Pulmonary hypertension, unspecified; K21.9 Gastro-esophageal reflux disease without esophagitis; M05.10 Rheumatoid lung disease with rheumatoid arthritis of unspecified site; M79.7 Fibromyalgia; Z66 Do not resuscitate; Z82.49 Family history of ischemic heart disease and other diseases of the circulatory system; Z99.81 Dependence on supplemental oxygen; Z89.021 Acquired absence of right finger(s); Z71.6 Tobacco abuse counseling; Z68.21 Body mass index [BMI] 21.0-21.9, adult
CPT/HCPCS: 0399T; 36415; 71045; 71260; 76705; 80048; 80053; 80074; 80202; 80307; 81001; 82040; 82272; 82330; 82436; 82570; 82728; 82962; 83036; 83540; 83550; 83605; 83615; 83735; 83880; 84100; 84133; 84156; 84300; 84439; 84443; 84466; 84484; 85025; 85045; 85610; 85651; 85730; 86140; 86738; 87040; 87070; 87077; 87086; 87106; 87186; 87205; 87305; 87324; 87449; 87521; 87522; 87633; 87806; 93005; 93306; 94640; 96365; 96368; 96375; A9585; G0378; J0456; J0696; J1650; J1756; J2185; J2543; J3370; J3480; J7620; G0475; J1815; J1940; J2930; J7030; J7040; J7050; J7120; Q0163

== ENCOUNTER 2018-11-10 23:03 | Observation (INO) | payer OTHER, MEDICAID ==
[~2018-11-10] VITALS: Ht 152.4 cm; Wt 46.8 kg
[~2018-11-10 23:03] MED LIST: ACET325C5 PO; AMLO-150 PO; BUDE10.2 INH; PRED10TA PO
--- NOTE | 2018-11-10 23:57 | NUR ---
PT REPORTS NON HEALING WOUND TO LEFT CALF. INJURED LEG ON MILK CRATE IN JUL, STATES IT HAS SINCE STARTED "OOZING" AGAIN. DENIES HX DIABETES STATES SHE THINKS ITS FROM HER RA MEDS.
[2018-11-11 00:28] LABS: MEAN CORPUSCULAR HEMOGLOBIN 23.1 pg (27.0-34.8); MEAN CORPUSCULAR HGB CONC 30.9 g/dL (32.4-35.8); MEAN PLATELET VOLUME 6.9 fL (7.4-10.4); PLATELET COUNT 625 x10^3/uL (130-400); RED BLOOD COUNT 4.45 x10^6/uL (3.82-5.3); RED CELL DISTRIBUTION WIDTH 22.5 % (9.6-15.2)
[2018-11-11 00:36] LABS: ALANINE AMINOTRANSFERASE 12 U/L (12-78); ALBUMIN 2.5 g/dL (3.4-5.0); ANION GAP 9 mmol/L (5-15); CALCIUM 8.5 mg/dL (8.5-10.1); CHLORIDE 109 mmol/L (98-107); CREATININE 0.88 mg/dL (0.55-1.02)
[2018-11-11 00:40] LABS: ALKALINE PHOSPHATASE 92 U/L (45-117); BILIRUBIN,TOTAL 0.3 mg/dL (0.2-1.0); TOTAL PROTEIN 6.8 g/dL (6.4-8.2); TROPONIN I < 0.015 ng/mL (0.000-0.045)
[2018-11-11 01:05] LABS: BASOPHILS # (AUTO) 0.06 x10^3/uL (0-0.1); BASOPHILS % (AUTO) 0 % (0-1); EOSINOPHILS # (AUTO) 0.51 x10^3/uL (0-0.4); EOSINOPHILS % (AUTO) 3 % (1-7); LYMPHOCYTES # (AUTO) 3.91 x10^3/uL (1-3.4); LYMPHOCYTES % (AUTO) 21 % (22-44); MD SCAN; MONOCYTES # (AUTO) 0.89 x10^3/uL (0.2-0.8); MONOCYTES % (AUTO) 5 % (2-9); NEUTROPHILS # (AUTO) 13.47 x10^3/uL (1.8-6.8); NEUTROPHILS % (AUTO) 72 % (42-75)
--- NOTE | 2018-11-11 02:21 | NUR ---
PT POOR HISTORIAN. MED REC COMPLETED TO BEST OF ABILITIES
[2018-11-11] MEDS ORDERED: CEFTRIAXONE PMX 1GM/50ML 50 ML ONE (02:27)
[2018-11-11] MEDS ORDERED: CEFTRIAXONE PMX 1GM/50ML 50 ML IV ONE (02:30)
[2018-11-11] MEDS ORDERED: ONDANSETRON 2MG/ML, 2ML IVPush PRN ×2 (03:00→06:30)
[2018-11-11 03:45] VITALS: BP 136/77
[2018-11-11] MEDS ORDERED: SODIUM CHLORIDE 0.9% 1,000 ML IV SCH (06:21)
[2018-11-11] MEDS ORDERED: ALBUTEROL SULFATE 2.5 MG/3 ML NPPB SCH ×2 (06:29→09:00)
[2018-11-11] MEDS ORDERED: AMLODIPINE 5 MG TABLET PO PRN (06:30)
[2018-11-11] MEDS ORDERED: OXYcodone/APAP 5/325MG TABLET PO PRN (06:30)
[2018-11-11] MEDS ORDERED: ENOXAPARIN 40 MG/0.4 ML SQ SCH (06:30)
[2018-11-11] MEDS ORDERED: POLYETHYLENE GLYCOL 17 GM PACKET PO PRN (06:30)
[2018-11-11] MEDS ORDERED: morphine SULFATE 10 MG/ML, 1ML IVPush PRN (06:30)
[2018-11-11] MEDS ORDERED: ACETAMINOPHEN 500 MG TABLET PO PRN (06:30)
[2018-11-11] MEDS ORDERED: ONDANSETRON ODT 4 MG PO PRN (06:30)
[2018-11-11] MEDS ORDERED: hydrALAzine 20 MG/ML, 1ML IVPush PRN (06:30)
[2018-11-11] MEDS ORDERED: GUAIFENESIN/DM 200-20MG, 10ML UDC PO PRN (06:30)
[2018-11-11] MEDS ORDERED: VANCOMYCIN PER PHARMACY MC PRN (06:30)
[2018-11-11] MEDS ORDERED: VANCOMYCIN 900 MG in SODIUM CHLORIDE 0.9% 100 ML IV SCH (07:00)
[2018-11-11] MEDS ORDERED: PHARMACOKINETIC CONSULTATION MC ONE (07:00)
[2018-11-11] MEDS ORDERED: PHARMACOKINETIC MONITORING MC PRN (07:00)
[2018-11-11 07:23] VITALS: BP 131/73
[2018-11-11] MEDS: PIPERACILLIN/TAZO/PMX 3.375GM 50 ML IV SCH ×2 (07:39→12:37)
[2018-11-11] MEDS ORDERED: BUDESONIDE 0.5 MG/2 ML INHA NPPB SCH (09:00)
[2018-11-11] MEDS ORDERED: IRON SUCROSE COMPLEX 100MG/5ML IV SCH (09:00)
[2018-11-11 13:41] VITALS: BP 130/72
[2018-11-12] MEDS ORDERED: VANCOMYCIN PMX 1GM/200ML 200 ML IVPB SCH (04:00)
== END 2018-11-11 14:22 | disposition left against medical advice (07) ==
LOC: ED 23:28 → EDIP 11-11 02:54 → INTOOBSV 11-11 02:54 → 4WST 11-11 03:56
PROVIDERS: ADMIT Hospitalist; ATTEND Hospitalist
DX: J18.9 Pneumonia, unspecified organism (principal); J96.21 Acute and chronic respiratory failure with hypoxia; E87.2 Acidosis; J44.0 Chronic obstructive pulmonary disease with (acute) lower respiratory infection; L03.116 Cellulitis of left lower limb; D50.9 Iron deficiency anemia, unspecified; E11.9 Type 2 diabetes mellitus without complications; E87.6 Hypokalemia; F17.210 Nicotine dependence, cigarettes, uncomplicated; I11.0 Hypertensive heart disease with heart failure; I50.9 Heart failure, unspecified; J84.10 Pulmonary fibrosis, unspecified; K21.9 Gastro-esophageal reflux disease without esophagitis; M06.9 Rheumatoid arthritis, unspecified; M79.7 Fibromyalgia; Z82.49 Family history of ischemic heart disease and other diseases of the circulatory system; Z99.81 Dependence on supplemental oxygen; Z89.021 Acquired absence of right finger(s)
CPT/HCPCS: 36415; 71045; 80053; 83880; 84484; 85025; 93005; 93971; 94640; 96365; 96366; 96367; 96368; 96372; 96375; 97161; 97165; 97530; 97535; 99291; G0378; G8978; G8979; G8980; J0696; J1650; J1756; J2543; J3370; J7030; J7613; J7626

== ENCOUNTER 2019-01-16 18:49 | Inpatient (IN) | payer OTHER ==
[~2019-01-16] VITALS: Ht 152.4 cm; Wt 45.4 kg
[~2019-01-16 18:49] MED LIST changes: +CEFP200T PO; +METO25TA35 PO; +PANT40TA3 PO; +TIZA4CAP PO; +proair INH
--- NOTE | 2019-01-16 19:10 | NUR ---
DA RN: PT PLACED ON 3L NC , PULSE OX NOW 94
--- NOTE | 2019-01-16 19:36 | NUR ---
put to room from lobby
[2019-01-16 19:41] LABS: MEAN CORPUSCULAR HEMOGLOBIN 22.6 pg (27.0-34.8); MEAN CORPUSCULAR HGB CONC 30.7 g/dL (32.4-35.8); MEAN CORPUSCULAR VOLUME 73.5 fL (80-100); MEAN PLATELET VOLUME 6.9 fL (7.4-10.4); PLATELET COUNT 557 x10^3/uL (130-400); RED BLOOD COUNT 4.98 x10^6/uL (3.82-5.3); RED CELL DISTRIBUTION WIDTH 26.9 % (9.6-15.2)
[2019-01-16 19:51] LABS: ALBUMIN 2.4 g/dL (3.4-5.0); ANION GAP 8 mmol/L (5-15); CALCIUM 8.1 mg/dL (8.5-10.1); CHLORIDE 108 mmol/L (98-107); CREATININE 0.74 mg/dL (0.55-1.02)
[2019-01-16 19:55] LABS: TROPONIN I < 0.015 ng/mL (0.000-0.045)
[2019-01-16 20:02] LABS: MD YES
[2019-01-16 20:04] LABS: BAND#(MANUAL) 1.91 x10^3/uL; BANDS%(MANUAL) 10 % (0-7); BASOS#(MANUAL) 0.19 x10^3/uL (0-0.1); BASOS% (MANUAL) 1 % (0-1); EOS#(MANUAL) 0.19 x10^3/uL (0.0-0.4); EOS% (MANUAL) 1 % (1-7); LYMPH#(MANUAL) 1.34 x10^3/uL (1-3.4); LYMPHS% (MANUAL) 7 % (22-44); METAMYELOCYTES# (MANUAL) 0.19 x10^3/uL (0-0); METAMYELOCYTES% (MANUAL) 1 % (0-1); MONOS#(MANUAL) 0.57 x10^3/uL (0.3-2.7); MONOS% (MANUAL) 3 % (2-9); NRBC % (MANUAL) 1 % (0-1); REACTIVE LYMPHS # (MANUAL) 1.34 x10^3/uL (0-0); REACTIVE LYMPHS % (MANUAL) 7 % (0-0); SEG#(MANUAL) 13.37 x10^3/uL (1.8-6.8); SEGS% (MANUAL) 70 % (42-75)
[2019-01-16 20:05] LABS: <PLATELET ESTIMATE> INCREASED; <PLT MORPHOLOGY> NORMAL PLT MORPH; ANISOCYTOSIS 1+; POLYCHROMASIA 1+
[2019-01-16] MEDS ORDERED: PIPERACILLIN/TAZO/PMX 4.5GM 100 ML IVPB ONE (20:30)
[2019-01-16] MEDS ORDERED: VANCOMYCIN PER PHARMACY MC ONE (20:30)
[2019-01-16] MEDS ORDERED: VANCOMYCIN PMX 1GM/200ML 200 ML IV ONE (20:30)
--- NOTE | 2019-01-16 20:37 | NUR ---
PT RESTING ON GURNEY. RR EVEN AND UNLABORED. PT ON CONT MONITOR, VSS. PT DENIES NEEDS ATT.
[2019-01-16] MEDS ORDERED: ALBUTEROL/IPRATROPIUM 2.5MG/0.5MG, 3 ML ONE (20:56)
[2019-01-16] MEDS ORDERED: ALBUTEROL/IPRATROPIUM 2.5MG/0.5MG, 3 ML NPPB ONE (21:00)
[2019-01-16] MEDS ORDERED: SODIUM CHLORIDE FLUSH 10ML SYR IVF PRN (21:00)
[2019-01-16] MEDS ORDERED: POLYETHYLENE GLYCOL 17 GM PACKET PO PRN (22:00)
[2019-01-16] MEDS: ENOXAPARIN 40 MG/0.4 ML SQ SCH (22:00)
[2019-01-16] MEDS: methylPREDNISolone SOD SUCC 125 MG/2 ML IVPush SCH (22:00)
[2019-01-16] MEDS ORDERED: hydrALAzine 20 MG/ML, 1ML IVPush PRN (22:00)
--- NOTE | 2019-01-16 22:13 | NUR ---
NO CHANGE IN PT STATUS. PT DENIES NEEDS ATT.
[2019-01-16] MEDS ORDERED: CEFTRIAXONE PMX 2GM/50ML 50 ML IV SCH (22:30)
[2019-01-16] MEDS ORDERED: ENOXAPARIN 40 MG/0.4 ML ONE (23:10)
[2019-01-16] MEDS ORDERED: methylPREDNISolone SOD SUCC 125 MG/2 ML ONE (23:10)
--- NOTE | 2019-01-16 23:11 | NUR ---
PT MEDICATED PER EMAR. PT RESTING ON GURNEY. RR EVEN AND UNLABORED. PT ON CONT MONITOR, VSS. PT DENIES NEEDS ATT.
[2019-01-16] MEDS ORDERED: ACETAMINOPHEN 325 MG TABLET ONE (23:38)
--- NOTE | 2019-01-17 01:10 | NUR ---
PT MOVED TO HOSPITAL BED. MEDICATED FOR PAIN PER EMAR. PT REFUSING ANY IV DRIPS/MEDS ATT.
--- NOTE | 2019-01-17 03:26 | NUR ---
RECEIVED REPORT AND ASSUMED PT. CARE. PT REMAINS MONITORED AND IS RESTING IN A HOSPITAL BED. SIDERAILS ARE UP X 3, HOB IS ELEVATED GREATER THAN 30 DEGREES. PT.'S VITALS ARE STABLE. RESP ARE EUPNEIC. PT. IS RESTING WITHOUT CONCERNS AT THIS TIME.
--- NOTE | 2019-01-17 04:48 | NUR ---
PT. REMAINS MONITORED, VSS. PT. IS RESTING WITHOUT CONCERNS AT THIS TIME.
--- NOTE | 2019-01-17 05:20 | NUR ---
NO CHANGES AT THIS TIME.
[2019-01-17] MEDS ORDERED: METOPROLOL TARTRATE 25 MG TABLET ONE (06:17)
[2019-01-17] MEDS: METOPROLOL TARTRATE 25 MG TABLET PO SCH ×2 (06:23→17:56)
[2019-01-17] MEDS ORDERED: methylPREDNISolone SOD SUCC 125 MG/2 ML ONE (06:25)
[2019-01-17] MEDS: methylPREDNISolone SOD SUCC 125 MG/2 ML IVPush SCH ×4 (06:27→23:12)
[2019-01-17 06:36] LABS: MEAN CORPUSCULAR HGB CONC 30.2 g/dL (32.4-35.8); MEAN CORPUSCULAR VOLUME 72.9 fL (80-100); MEAN PLATELET VOLUME 7.2 fL (7.4-10.4); PLATELET COUNT 495 x10^3/uL (130-400); RED BLOOD COUNT 5.04 x10^6/uL (3.82-5.3); RED CELL DISTRIBUTION WIDTH 26.8 % (9.6-15.2)
--- NOTE | 2019-01-17 06:36 | NUR ---
PT. WAS REFUSING MEDICATIONS EARLIER. PT. TOOK HER AM PO MEDS AND WAS WILLING TO RECEIVE IV SOLUMEDROL AT THIS TIME. LABS DRAWN AND SENT. VSS. PT. REMAINS MONITORED.
[2019-01-17] MEDS ORDERED: PIPERACILLIN/TAZO/PMX 3.375GM 50 ML ONE (06:43)
[2019-01-17 06:52] LABS: ALANINE AMINOTRANSFERASE 23 U/L (12-78); ALBUMIN 2.2 g/dL (3.4-5.0); ANION GAP 7 mmol/L (5-15); CALCIUM 8.2 mg/dL (8.5-10.1); CHLORIDE 112 mmol/L (98-107); CREATININE 0.68 mg/dL (0.55-1.02)
[2019-01-17 06:55] LABS: ALKALINE PHOSPHATASE 192 U/L (45-117); BILIRUBIN,TOTAL 0.5 mg/dL (0.2-1.0); TOTAL PROTEIN 6.4 g/dL (6.4-8.2)
[2019-01-17] MEDS ORDERED: ALBUTEROL/IPRATROPIUM 2.5MG/0.5MG, 3 ML ONE ×2 (06:56→10:30)
[2019-01-17] MEDS ORDERED: PHARMACOKINETIC MONITORING MC PRN (07:00)
[2019-01-17] MEDS: ALBUTEROL/IPRATROPIUM 2.5MG/0.5MG, 3 ML NPPB SCH ×4 (07:00→18:54)
[2019-01-17] MEDS ORDERED: VANCOMYCIN PER PHARMACY MC PRN (07:00)
--- NOTE | 2019-01-17 07:03 | NUR ---
REPORT RECEIVED FROM NJ WOOD. ASSUMING PRIMARY CARE OF PT.
[2019-01-17] MEDS: PIPERACILLIN/TAZO/PMX 3.375GM 50 ML IV SCH ×3 (07:13→23:12)
[2019-01-17 07:29] LABS: MD YES
[2019-01-17 07:30] LABS: BAND#(MANUAL) 0.46 x10^3/uL; BANDS%(MANUAL) 3 % (0-7); LYMPH#(MANUAL) 1.06 x10^3/uL (1-3.4); LYMPHS% (MANUAL) 7 % (22-44); METAMYELOCYTES# (MANUAL) 0.15 x10^3/uL (0-0); METAMYELOCYTES% (MANUAL) 1 % (0-1); SEG#(MANUAL) 13.53 x10^3/uL (1.8-6.8); SEGS% (MANUAL) 89 % (42-75)
[2019-01-17 07:32] LABS: ANISOCYTOSIS 1+; MICROCYTOSIS 1+; POLYCHROMASIA 1+
[2019-01-17 07:33] LABS: <PLATELET ESTIMATE> INCREASED; <PLT MORPHOLOGY> NORMAL PLT MORPH
[2019-01-17] MEDS ORDERED: NICOTINE 14MG/24 HR PATCH.TD24 ONE (07:42)
[2019-01-17] MEDS ORDERED: AMLODIPINE 5 MG TABLET ONE (07:42)
[2019-01-17] MEDS ORDERED: FUROSEMIDE 20 MG/2 ML ONE (07:42)
[2019-01-17] MEDS ORDERED: PANTOPRAZOLE 20MG TABLET ONE (07:42)
[2019-01-17] MEDS: NICOTINE 14MG/24 HR PATCH.TD24 TD SCH ×2 (07:49→20:44)
[2019-01-17] MEDS: PANTOPROZOLE 40MG TABLET PO SCH (07:50)
--- NOTE | 2019-01-17 07:57 | NUR ---
PT A&OX4. MORNING MEDICATIONS ADMINISTERED PER EMAR. RN TO ORDER FOOD FOR PT PER DIET ORDER. NO COMPLAINTS OF PAIN OR DISCOMFORT AT THIS TIME. PT LAYING IN HOSPITAL BED. CALL LIGHT AND PERSONAL BELONGINGS WITHIN REACH. BSC NEXT TO BED. PT A SBA TO BSC.
[2019-01-17] MEDS ORDERED: TEMPLATE NON-FORMULARY MED. (Budesonide/Formoterol Fumarate (Symbicort 160-4.5 Mcg Inhaler INH SCH (09:00)
[2019-01-17] MEDS: BUDESONIDE 0.5 MG/2 ML INHA INH SCH ×2 (09:00→18:54)
[2019-01-17] MEDS ORDERED: CEFPODOXIME PROXETIL 200 MG PO SCH (09:00)
[2019-01-17] MEDS ORDERED: DOXYCYCLINE 100MG CAP PO SCH (09:00)
[2019-01-17] MEDS ORDERED: FUROSEMIDE 20 MG/2 ML IV SCH (09:00)
[2019-01-17] MEDS ORDERED: AMLODIPINE 10 MG TAB PO SCH (09:00)
[2019-01-17 09:20] LABS: AMPHETAMINE SCREEN, URINE Negative (Negative); BARBITURATE SCREEN, URINE Negative (Negative); BENZODIAZEPINE SCREEN, URINE Negative (Negative); CANNABINOID SCREEN, URINE Negative (Negative); COCAINE SCREEN, URINE Negative (Negative); CULTURE INDICATED? YES; METHADONE SCREEN, URINE Negative (Negative); MICROSCOPIC INDICATED; OPIATE SCREEN, URINE Positive (Negative)
[2019-01-17] MEDS ORDERED: BUDESONIDE 0.5 MG/2 ML INHA ONE (10:30)
--- NOTE | 2019-01-17 10:47 | NUR ---
RT AT BEDSIDE.
[2019-01-17 11:09] LABS: HCT (SEDRATE) 36.8 % (34.6-47.8)
[2019-01-17] MEDS: FOLIC ACID 1 MG TABLET PO SCH (11:24)
--- NOTE | 2019-01-17 11:24 | NUR ---
REPORT TO NJ CRAVEN.
[2019-01-17] MEDS: THIAMINE 100MG TABLET PO SCH (11:25)
[2019-01-17 11:52] VITALS: BP 108/71
[2019-01-17] MEDS ORDERED: METO25TA35 PO (12:54)
[2019-01-17] MEDS ORDERED: OXYC-307 PO (13:18)
[2019-01-17 13:33] VITALS: BP 112/69
[2019-01-17] MEDS: VANCOMYCIN PMX 1GM/200ML 200 ML IV SCH (14:17)
[2019-01-17] MEDS: ACETAMINOPHEN 325 MG TABLET PO PRN ×2 (15:16→23:18)
[2019-01-17 17:59] VITALS: BP 102/65
[2019-01-17] MEDS: TIZANIDINE 4MG TABLET PO PRN ×2 (17:59→23:18)
[2019-01-17] MEDS: ENOXAPARIN 40 MG/0.4 ML SQ SCH (20:44)
[2019-01-17 20:49] VITALS: BP 92/50
[2019-01-17] MEDS ORDERED: TIZANIDINE 2MG TABLET ONE (23:17)
[2019-01-18 00:25] VITALS: BP 90/57
[2019-01-18] MEDS: ACETAMINOPHEN 325 MG TABLET PO PRN ×4 (04:29→17:58)
[2019-01-18 05:14] LABS: CALCIUM 7.8 mg/dL (8.5-10.1); CHLORIDE 107 mmol/L (98-107)
[2019-01-18 05:17] LABS: ALBUMIN 2.3 g/dL (3.4-5.0); ANION GAP 11 mmol/L (5-15); CREATININE 1.17 mg/dL (0.55-1.02)
[2019-01-18] MEDS: methylPREDNISolone SOD SUCC 125 MG/2 ML IVPush SCH ×3 (05:31→20:38)
[2019-01-18 05:56] LABS: MD YES; MEAN CORPUSCULAR HEMOGLOBIN 22.9 pg (27.0-34.8); MEAN CORPUSCULAR HGB CONC 31.5 g/dL (32.4-35.8); MEAN CORPUSCULAR VOLUME 72.9 fL (80-100); MEAN PLATELET VOLUME 7.4 fL (7.4-10.4); PLATELET COUNT 476 x10^3/uL (130-400); RED BLOOD COUNT 4.31 x10^6/uL (3.82-5.3)
[2019-01-18 05:59] LABS: <PLATELET ESTIMATE> INCREASED; BANDS%(MANUAL) 2 % (0-7); LYMPH#(MANUAL) 0.91 x10^3/uL (1-3.4); LYMPHS% (MANUAL) 6 % (22-44); MICROCYTOSIS 1+; MONOS#(MANUAL) 0.15 x10^3/uL (0.3-2.7); MONOS% (MANUAL) 1 % (2-9); POLYCHROMASIA 1+; SEG#(MANUAL) 13.83 x10^3/uL (1.8-6.8); SEGS% (MANUAL) 91 % (42-75); TARGET CELLS 1+
[2019-01-18 06:01] LABS: <PLT MORPHOLOGY> NORMAL PLT MORPH; HYPOCHROMIA 1+
[2019-01-18 06:03] LABS: ANISOCYTOSIS 2+
[2019-01-18] MEDS ORDERED: SODIUM CHLORIDE 0.9% 1,000 ML IV SCH (06:30)
[2019-01-18] MEDS ORDERED: GLUCAGON 1 MG IM PRN (06:30)
[2019-01-18] MEDS ORDERED: DEXTROSE 4 GM TAB.CHEW PO PRN (06:30)
[2019-01-18] MEDS ORDERED: DEXTROSE 50%, 50ML SYRINGE IVPush PRN (06:30)
[2019-01-18 06:53] VITALS: BP 103/64
[2019-01-18] MEDS: ALBUTEROL/IPRATROPIUM 2.5MG/0.5MG, 3 ML NPPB SCH ×2 (07:20→07:30)
[2019-01-18] MEDS: BUDESONIDE 0.5 MG/2 ML INHA INH SCH (07:30)
[2019-01-18] MEDS: THIAMINE 100MG TABLET PO SCH (08:14)
[2019-01-18] MEDS: PIPERACILLIN/TAZO/PMX 3.375GM 50 ML IV SCH ×3 (08:14→23:30)
[2019-01-18] MEDS: FOLIC ACID 1 MG TABLET PO SCH (08:15)
[2019-01-18] MEDS: POTASSIUM CHLORIDE 20 MEQ TAB.ER.PRT PO SCH ×3 (08:16→20:38)
[2019-01-18] MEDS: SODIUM CHLORIDE FLUSH 10ML SYR IVF SCH ×2 (08:16→20:40)
[2019-01-18] MEDS: PANTOPROZOLE 40MG TABLET PO SCH (08:18)
[2019-01-18] MEDS: METOPROLOL TARTRATE 25 MG TABLET PO SCH ×2 (09:17→17:59)
[2019-01-18] MEDS: VANCOMYCIN PMX 1GM/200ML 200 ML IV SCH (09:18)
[2019-01-18] MEDS: INSULIN LISPRO 100 UNITS/ML, PEN SQ-INSULIN SCH ×4 (09:19→20:39)
[2019-01-18] MEDS: SODIUM CHLORIDE 0.9% 1,000 ML IV SCH (13:03)
[2019-01-18 14:10] VITALS: BP 114/62
[2019-01-18 20:32] VITALS: BP 120/72
[2019-01-18] MEDS: NICOTINE 14MG/24 HR PATCH.TD24 TD SCH (20:40)
[2019-01-18] MEDS: ENOXAPARIN 40 MG/0.4 ML SQ SCH (20:40)
[2019-01-19 02:19] VITALS: BP 103/67
[2019-01-19] MEDS: VANCOMYCIN PMX 1GM/200ML 200 ML IV SCH (02:43)
[2019-01-19] MEDS: methylPREDNISolone SOD SUCC 125 MG/2 ML IVPush SCH ×2 (02:43→07:55)
[2019-01-19] MEDS: SODIUM CHLORIDE 0.9% 1,000 ML IV SCH (02:44)
[2019-01-19 05:11] LABS: ALBUMIN 2.2 g/dL (3.4-5.0); ANION GAP 6 mmol/L (5-15); CALCIUM 7.4 mg/dL (8.5-10.1); CHLORIDE 111 mmol/L (98-107)
[2019-01-19 05:12] LABS: MEAN CORPUSCULAR HEMOGLOBIN 22.8 pg (27.0-34.8); MEAN CORPUSCULAR VOLUME 73.3 fL (80-100); MEAN PLATELET VOLUME 7.3 fL (7.4-10.4); PLATELET COUNT 430 x10^3/uL (130-400); RED BLOOD COUNT 4.24 x10^6/uL (3.82-5.3); RED CELL DISTRIBUTION WIDTH 26.5 % (9.6-15.2)
[2019-01-19 05:15] LABS: ALANINE AMINOTRANSFERASE 13 U/L (12-78); ALKALINE PHOSPHATASE 136 U/L (45-117); BILIRUBIN,TOTAL 0.3 mg/dL (0.2-1.0); CREATININE 0.99 mg/dL (0.55-1.02); TOTAL PROTEIN 5.7 g/dL (6.4-8.2)
[2019-01-19 05:21] VITALS: BP 108/65
[2019-01-19] MEDS: METOPROLOL TARTRATE 25 MG TABLET PO SCH (05:23)
[2019-01-19 05:44] LABS: MD YES
[2019-01-19 05:45] LABS: ANISOCYTOSIS 1+; BAND#(MANUAL) 0.57 x10^3/uL; BANDS%(MANUAL) 3 % (0-7); LYMPH#(MANUAL) 0.96 x10^3/uL (1-3.4); LYMPHS% (MANUAL) 5 % (22-44); METAMYELOCYTES# (MANUAL) 0.19 x10^3/uL (0-0); METAMYELOCYTES% (MANUAL) 1 % (0-1); MICROCYTOSIS 1+; POLYCHROMASIA 1+; SEG#(MANUAL) 17.38 x10^3/uL (1.8-6.8); SEGS% (MANUAL) 91 % (42-75)
[2019-01-19 05:46] LABS: <PLATELET ESTIMATE> INCREASED; <PLT MORPHOLOGY> NORMAL PLT MORPH; TARGET CELLS 1+
[2019-01-19] MEDS ORDERED: SODIUM CHLORIDE 0.9% 1,000 ML IV SCH (06:30)
[2019-01-19 07:19] VITALS: BP 117/78
[2019-01-19] MEDS: POTASSIUM CHLORIDE 20 MEQ TAB.ER.PRT PO SCH (07:48)
[2019-01-19] MEDS: ACETAMINOPHEN 325 MG TABLET PO PRN (07:48)
[2019-01-19] MEDS: THIAMINE 100MG TABLET PO SCH (07:49)
[2019-01-19] MEDS: PIPERACILLIN/TAZO/PMX 3.375GM 50 ML IV SCH (07:49)
[2019-01-19] MEDS: INSULIN LISPRO 100 UNITS/ML, PEN SQ-INSULIN SCH ×2 (07:50→13:47)
[2019-01-19] MEDS: SODIUM CHLORIDE FLUSH 10ML SYR IVF SCH (07:51)
[2019-01-19] MEDS: FOLIC ACID 1 MG TABLET PO SCH (07:55)
[2019-01-19] MEDS: PANTOPROZOLE 40MG TABLET PO SCH (07:57)
[2019-01-19 13:11] VITALS: BP 128/84
== END 2019-01-19 14:32 | disposition left against medical advice (07) | DRG 871 ==
LOC: ED 20:16 → EDIP 20:44 → 5SO 01-17 11:50
PROVIDERS: ADMIT Family Medicine; ATTEND Family Medicine
DX: A41.9 Sepsis, unspecified organism (principal); J15.9 Unspecified bacterial pneumonia; J96.01 Acute respiratory failure with hypoxia; I50.33 Acute on chronic diastolic (congestive) heart failure; J44.1 Chronic obstructive pulmonary disease with (acute) exacerbation; J44.0 Chronic obstructive pulmonary disease with (acute) lower respiratory infection; J84.9 Interstitial pulmonary disease, unspecified; L03.116 Cellulitis of left lower limb; N17.9 Acute kidney failure, unspecified; Z53.21 Procedure and treatment not carried out due to patient leaving prior to being seen by health care provider; D64.9 Anemia, unspecified; E87.6 Hypokalemia; F10.20 Alcohol dependence, uncomplicated; Y90.9 Presence of alcohol in blood, level not specified; F17.200 Nicotine dependence, unspecified, uncomplicated; I11.0 Hypertensive heart disease with heart failure; K21.9 Gastro-esophageal reflux disease without esophagitis; M05.10 Rheumatoid lung disease with rheumatoid arthritis of unspecified site; M79.7 Fibromyalgia; Y95 Nosocomial condition; Z79.899 Other long term (current) drug therapy
CPT/HCPCS: 36415; 71046; 80048; 80053; 80202; 80307; 81001; 82040; 82962; 83036; 83605; 83735; 83880; 84100; 84145; 84484; 85025; 85651; 86140; 87040; 87070; 87075; 87077; 87086; 87186; 87205; 93005; 93970; 94640; 99285; G0378; J1650; J2543; J3370; J7620; J7626; J1815; J1940; J2930; J7030

== ENCOUNTER 2019-03-28 11:16 | Inpatient (IN) | payer OTHER ==
[~2019-03-28] VITALS: Ht 149.9 cm; Wt 48.1 kg
[2019-03-28] VITALS (8 sets, daily range): BP systolic 151–192; BP diastolic 98–122
[~2019-03-28 11:16] MED LIST changes: +OXYC-307 PO
[2019-03-28] MEDS ORDERED: FAMOTIDINE 20 MG/2 ML IVPush ONE (12:00)
[2019-03-28] MEDS ORDERED: SODIUM CHLORIDE 0.9% 500 ML IV SCH (12:00)
[2019-03-28 12:18] LABS: ALANINE AMINOTRANSFERASE 32 U/L (12-78); ANION GAP 12 mmol/L (5-15); CALCIUM 8.7 mg/dL (8.5-10.1); CHLORIDE 109 mmol/L (98-107); CREATININE 0.83 mg/dL (0.55-1.02)
[2019-03-28] MEDS ORDERED: FAMOTIDINE 20 MG/2 ML ONE (12:33)
[2019-03-28 12:34] LABS: ALKALINE PHOSPHATASE 125 U/L (45-117); BILIRUBIN,TOTAL 0.4 mg/dL (0.2-1.0); TOTAL PROTEIN 6.6 g/dL (6.4-8.2)
[2019-03-28] MEDS ORDERED: POTASSIUM CHLORIDE 20 MEQ in SODIUM CHLORIDE 0.9% 250 ML IV ONE (13:00)
[2019-03-28] MEDS ORDERED: SODIUM CHLORIDE 0.9% 1,000 ML IV SCH (13:00)
[2019-03-28 13:05] LABS: MEAN CORPUSCULAR HEMOGLOBIN 23.5 pg (27.0-34.8); MEAN CORPUSCULAR HGB CONC 30.7 g/dL (32.4-35.8); MEAN CORPUSCULAR VOLUME 76.5 fL (80-100); MEAN PLATELET VOLUME 6.7 fL (7.4-10.4); PLATELET COUNT 784 x10^3/uL (130-400)
[2019-03-28] MEDS ORDERED: MORPHINE SULFATE 4 MG/ML, 1ML ONE ×2 (13:16→15:03)
[2019-03-28] MEDS: MORPHINE SULFATE 4 MG/ML, 1ML IVPush PRN ×2 (13:18→15:51)
--- NOTE | 2019-03-28 13:20 | NUR ---
PT MEDICATED FOR PAIN, FLUID BOLUS INFUSING, BLANKET WARMER ON PT.
[2019-03-28 13:25] LABS: MD YES
[2019-03-28 13:27] LABS: BAND#(MANUAL) 0.61 x10^3/uL; BANDS%(MANUAL) 2 % (0-7); HYPERSEG PMNs 1+; LYMPH#(MANUAL) 1.84 x10^3/uL (1-3.4); LYMPHS% (MANUAL) 6 % (22-44); MONOS#(MANUAL) 0.92 x10^3/uL (0.3-2.7); MONOS% (MANUAL) 3 % (2-9); SEG#(MANUAL) 27.23 x10^3/uL (1.8-6.8); SEGS% (MANUAL) 89 % (42-75)
[2019-03-28 13:30] LABS: ANISOCYTOSIS 1+; HYPOCHROMIA 1+; MICROCYTOSIS 1+; TARGET CELLS 1+
[2019-03-28 13:32] LABS: <PLATELET ESTIMATE> INCREASED; <PLT MORPHOLOGY> NORMAL PLT MORPH
--- NOTE | 2019-03-28 14:20 | NUR ---
ATTEMPTED TO VOID URINE UNABLE ON THE BEDPAN. REPOSITIONED PT.
--- NOTE | 2019-03-28 14:57 | NUR ---
REPORT TO NJ GARCIA
[2019-03-28] MEDS ORDERED: KETOROLAC 30 MG/1 ML IV PRN (15:00)
[2019-03-28] MEDS ORDERED: ONDANSETRON ODT 4 MG PO PRN (15:00)
[2019-03-28] MEDS ORDERED: ACETAMINOPHEN 325 MG TABLET PO PRN (15:00)
[2019-03-28] MEDS ORDERED: hydrALAzine 20 MG/ML, 1ML IVPush PRN (15:00)
[2019-03-28] MEDS ORDERED: LACTATED RINGERS 1,000 ML IV SCH (15:00)
[2019-03-28] MEDS ORDERED: ONDANSETRON 2MG/ML, 2ML IVPush PRN (15:00)
[2019-03-28] MEDS ORDERED: LIDODERM 5% PATCH TD PRN (15:00)
[2019-03-28] MEDS ORDERED: LACTATED RINGERS 1,000 ML IVBOLUS ONE (15:00)
[2019-03-28] MEDS ORDERED: ENALAPRILAT 1.25 MG/ML, 2ML IVPush PRN (15:00)
--- NOTE | 2019-03-28 15:32 | NUR ---
Pt to bedside commode for ua, pt states her IV didnt "feel good" so she decided to take it out. Pt educated on importance of IV fluids, and need for IV for admit and pain meds. Pt wrythig in pain, unable to get comfortable, pt aware of poc (IV start, meds, CT, admit) pt states she does not want another CT.
--- NOTE | 2019-03-28 15:50 | NUR ---
Cardiovascular US at bedside, pt repositioned in bed, room cleaned, new IV started, fluids infusing, pt remains on cont cardiac and pulse ox monitoring.
[2019-03-28 16:04] LABS: MICROSCOPIC AUTO
[2019-03-28 16:07] LABS: CULTURE INDICATED? YES
[2019-03-28 16:33] LABS: THYROID STIMULATING HORMONE 0.477 mIU/L (0.358-3.740)
--- NOTE | 2019-03-28 16:39 | NUR ---
Hospitalist notified (by ED sup/director) of cricital lab values, no new orders recieved, pt in CT at this time.
--- NOTE | 2019-03-28 17:04 | NUR ---
Report to Nighat MAURO, room not clean, pt ready for transport when room is clean
[2019-03-28 17:46] LABS: AMPHETAMINE SCREEN, URINE Positive (Negative); BARBITURATE SCREEN, URINE Negative (Negative); BENZODIAZEPINE SCREEN, URINE Negative (Negative); CANNABINOID SCREEN, URINE Positive (Negative); COCAINE SCREEN, URINE Negative (Negative); METHADONE SCREEN, URINE Negative (Negative); OPIATE SCREEN, URINE Positive (Negative)
[2019-03-28] MEDS: morphine SULFATE 10 MG/ML, 1ML IVPush PRN ×3 (17:53→22:02)
[2019-03-28] MEDS: ENOXAPARIN 30 MG/0.3 ML SQ SCH (17:53)
[2019-03-28] MEDS: D5%-LACTATED RINGERS 1,000 ML IV SCH (19:58)
[2019-03-28] MEDS: Budesonide/Formoterol Fumarate (Symbicort 160-4.5 Mcg Inhaler INH SCH (19:59)
[2019-03-28] MEDS: VANCOMYCIN 50 MG/ML ORAL SUSP PO SCH (19:59)
[2019-03-28] MEDS ORDERED: SODIUM BICARBONATE 650 MG TABLET PO SCH (21:00)
[2019-03-28] MEDS: LORazepam 2 MG/ML, 1ML IVPush PRN (22:02)
[2019-03-28 22:17] LABS: MEAN CORPUSCULAR HEMOGLOBIN 23.2 pg (27.0-34.8); MEAN CORPUSCULAR VOLUME 77.1 fL (80-100); MEAN PLATELET VOLUME 6.5 fL (7.4-10.4); PLATELET COUNT 754 x10^3/uL (130-400); RED BLOOD COUNT 6.49 x10^6/uL (3.82-5.3); RED CELL DISTRIBUTION WIDTH 24.1 % (9.6-15.2)
[2019-03-28 22:23] LABS: ANION GAP 12 mmol/L (5-15); CALCIUM 8.6 mg/dL (8.5-10.1); CHLORIDE 111 mmol/L (98-107)
[2019-03-28 22:26] LABS: ALANINE AMINOTRANSFERASE 62 U/L (12-78); ALKALINE PHOSPHATASE 139 U/L (45-117); BILIRUBIN,TOTAL 0.2 mg/dL (0.2-1.0); CREATININE 0.88 mg/dL (0.55-1.02); TOTAL PROTEIN 6.4 g/dL (6.4-8.2)
[2019-03-28] MEDS: PIPERACILLIN/TAZO/PMX 3.375GM 50 ML IV SCH (22:32)
[2019-03-28 22:48] LABS: MD YES
[2019-03-28 22:50] LABS: LYMPH#(MANUAL) 2.04 x10^3/uL (1-3.4); LYMPHS% (MANUAL) 8 % (22-44); MONOS#(MANUAL) 0.51 x10^3/uL (0.3-2.7); MONOS% (MANUAL) 2 % (2-9); REACTIVE LYMPHS # (MANUAL) 0.26 x10^3/uL (0-0); REACTIVE LYMPHS % (MANUAL) 1 % (0-0); SEGS% (MANUAL) 89 % (42-75)
[2019-03-28 22:51] LABS: ANISOCYTOSIS 1+; HYPOCHROMIA 1+; MICROCYTOSIS 1+
[2019-03-28 22:52] LABS: <PLATELET ESTIMATE> INCREASED; <PLT MORPHOLOGY> NORMAL PLT MORPH; ECHINOCYTES 1+; HYPERSEG PMNs 1+; TARGET CELLS 1+
[2019-03-28] MEDS ORDERED: ENALAPRILAT 1.25 MG/ML, 1ML IVPush PRN (23:00)
[2019-03-29] MEDS ORDERED: POTASSIUM CHLORIDE 40 MEQ in SODIUM CHLORIDE 0.9% 500 ML IV ONE (00:30)
[2019-03-29] MEDS: D5%-LACTATED RINGERS 1,000 ML IV SCH ×2 (00:49→06:10)
[2019-03-29 02:12] VITALS: BP 132/86
[2019-03-29] MEDS: VANCOMYCIN 50 MG/ML ORAL SUSP PO SCH ×2 (03:21→08:21)
[2019-03-29 03:25] VITALS: BP 141/91
[2019-03-29] MEDS: morphine SULFATE 10 MG/ML, 1ML IVPush PRN ×4 (03:45→17:31)
[2019-03-29 03:46] LABS: MEAN CORPUSCULAR VOLUME 76.8 fL (80-100); MEAN PLATELET VOLUME 6.4 fL (7.4-10.4); PLATELET COUNT 681 x10^3/uL (130-400); RED BLOOD COUNT 6.35 x10^6/uL (3.82-5.3); RED CELL DISTRIBUTION WIDTH 23.8 % (9.6-15.2)
[2019-03-29 03:47] LABS: ALANINE AMINOTRANSFERASE 64 U/L (12-78); ALBUMIN 1.9 g/dL (3.4-5.0); ANION GAP 12 mmol/L (5-15); CALCIUM 8.4 mg/dL (8.5-10.1); CHLORIDE 111 mmol/L (98-107)
[2019-03-29 03:52] LABS: ALKALINE PHOSPHATASE 140 U/L (45-117); BILIRUBIN,TOTAL 0.2 mg/dL (0.2-1.0); CHOL/HDL RATIO 4.3; CHOLESTEROL, TOTAL 78 mg/dL (140-239); CREATININE 1.03 mg/dL (0.55-1.02); HDL CHOL % 23 % (28-40); HDL CHOLESTEROL (DIRECT) 18 mg/dL (40-60); LDL CHOLESTEROL,CALCULATED 36 mg/dL (54-169); TOTAL PROTEIN 6.2 g/dL (6.4-8.2); TRIGLYCERIDES 120 mg/dL (50-200); TROPONIN I 0.032 ng/mL (0.000-0.045); VLDL CHOLESTEROL 24 mg/dL (0-25)
[2019-03-29] MEDS: PIPERACILLIN/TAZO/PMX 3.375GM 50 ML IV SCH ×2 (04:21→11:00)
[2019-03-29] MEDS: ENOXAPARIN 30 MG/0.3 ML SQ SCH (05:12)
[2019-03-29 06:00] LABS: MD YES
[2019-03-29 06:02] LABS: BAND#(MANUAL) 0.79 x10^3/uL; BANDS%(MANUAL) 3 % (0-7); LYMPH#(MANUAL) 1.05 x10^3/uL (1-3.4); LYMPHS% (MANUAL) 4 % (22-44); MONOS#(MANUAL) 0.79 x10^3/uL (0.3-2.7); MONOS% (MANUAL) 3 % (2-9); SEG#(MANUAL) 23.67 x10^3/uL (1.8-6.8); SEGS% (MANUAL) 90 % (42-75)
[2019-03-29 06:03] LABS: <PLATELET ESTIMATE> INCREASED; <PLT MORPHOLOGY> NORMAL PLT MORPH; ANISOCYTOSIS 1+; ECHINOCYTES 1+; MICROCYTOSIS 1+; POLYCHROMASIA 1+; TARGET CELLS 1+
[2019-03-29 08:17] VITALS: BP 127/80
[2019-03-29] MEDS: Budesonide/Formoterol Fumarate (Symbicort 160-4.5 Mcg Inhaler INH SCH (08:21)
[2019-03-29] MEDS ORDERED: THIAMINE 200 MG in SODIUM CHLORIDE 0.9% 50 ML IV ONE (08:30)
[2019-03-29] MEDS ORDERED: NS + 20MEQ KCL 1,000 ML IV SCH (08:30)
[2019-03-29] MEDS ORDERED: AMLODIPINE 10 MG TAB PO SCH (09:00)
[2019-03-29] MEDS ORDERED: OMNIPAQUE 350 MG/ML, 75ML BOTTLE ONE (09:51)
[2019-03-29] MEDS ORDERED: HEPARIN 5,000 UNITS/ML, 1ML IV ONE (14:30)
[2019-03-29] MEDS ORDERED: HEPARIN 25,000 UNITS/500ML PMX 500 ML IV PRN (14:30)
[2019-03-29] MEDS ORDERED: HEPARIN 5,000 UNITS/ML, 1ML IV PRN (14:30)
[2019-03-29 14:45] VITALS: BP 158/90
[2019-03-29 14:52] LABS: INTERNATIONAL NORMALIZED RATIO 1.15 (0.93-1.1)
[2019-03-29 15:12] LABS: D-DIMER 6.68 ug/mlFEU (0.00-0.52)
[2019-03-29] MEDS ORDERED: LORazepam 2 MG/ML, 1ML IVPush PRN (17:00)
[2019-03-29] MEDS ORDERED: HALOPERIDOL 0.5 MG TABLET PO PRN (17:00)
[2019-03-29] MEDS ORDERED: HALOPERIDOL 2 MG/ML ORAL SOL PO PRN (17:30)
[2019-03-29] MEDS: LORazepam 2 MG/ML, 1ML IVPush PRN (18:41)
[2019-03-29] MEDS: MORPHINE SULFATE 4 MG/ML, 1ML IVPush PRN (19:48)
[2019-03-30] MEDS: morphine SULFATE 10 MG/ML, 1ML IVPush PRN ×3 (01:13→10:02)
[2019-03-30] MEDS ORDERED: NS + 20MEQ KCL 1,000 ML IV SCH (08:30)
[2019-03-30] MEDS ORDERED: THIAMINE 100 MG in SODIUM CHLORIDE 0.9% 50 ML IV SCH (08:30)
[2019-03-30 08:53] LABS: ALANINE AMINOTRANSFERASE 44 U/L (12-78); ALBUMIN 1.7 g/dL (3.4-5.0); ANION GAP 10 mmol/L (5-15); CALCIUM 8.6 mg/dL (8.5-10.1); CHLORIDE 113 mmol/L (98-107); CREATININE 0.78 mg/dL (0.55-1.02); MEAN CORPUSCULAR HEMOGLOBIN 22.6 pg (27.0-34.8); MEAN CORPUSCULAR VOLUME 75.5 fL (80-100); MEAN PLATELET VOLUME 6.9 fL (7.4-10.4); PLATELET COUNT 439 x10^3/uL (130-400); RED BLOOD COUNT 5.18 x10^6/uL (3.82-5.3); RED CELL DISTRIBUTION WIDTH 23.9 % (9.6-15.2)
[2019-03-30 08:56] LABS: ALKALINE PHOSPHATASE 173 U/L (45-117); BILIRUBIN,TOTAL 0.3 mg/dL (0.2-1.0); TOTAL PROTEIN 5.8 g/dL (6.4-8.2)
[2019-03-30 09:39] LABS: BASOPHILS # (AUTO) 0.06 x10^3/uL (0-0.1); BASOPHILS % (AUTO) 0 % (0-1); EOSINOPHILS # (AUTO) 0.01 x10^3/uL (0-0.4); EOSINOPHILS % (AUTO) 0 % (1-7); LYMPHOCYTES # (AUTO) 1.52 x10^3/uL (1-3.4); LYMPHOCYTES % (AUTO) 9 % (22-44); MD MORPH REVIEW ONLY; MONOCYTES # (AUTO) 1.23 x10^3/uL (0.2-0.8); MONOCYTES % (AUTO) 7 % (2-9); NEUTROPHILS # (AUTO) 14.32 x10^3/uL (1.8-6.8); NEUTROPHILS % (AUTO) 84 % (42-75)
[2019-03-30 09:40] LABS: MEAN CORPUSCULAR HGB CONC 29.9 g/dL (32.4-35.8)
[2019-03-30 09:42] LABS: <PLATELET ESTIMATE> INCREASED; <PLT MORPHOLOGY> NORMAL PLT MORPH
[2019-03-30 09:48] LABS: ANISOCYTOSIS 1+; MICROCYTOSIS 1+
[2019-03-30 09:49] LABS: HYPOCHROMIA 2+
[2019-03-30] MEDS: MORPHINE SULFATE 4 MG/ML, 1ML IVPush PRN ×3 (12:14→17:22)
[2019-03-30] MEDS: LORazepam 2 MG/ML, 1ML IVPush PRN (15:51)
[2019-03-31] MEDS: LORazepam 2 MG/ML, 1ML IVPush PRN ×2 (03:15→19:48)
[2019-04-01] MEDS: ATROPINE OPHTH SOLN 1%, 5ML BC PRN (08:33)
[2019-04-01] MEDS: LORazepam 2 MG/ML, 1ML IVPush PRN (16:43)
[2019-04-02] MEDS: LORazepam 2 MG/ML, 1ML IVPush PRN (15:43)
[2019-04-02] MEDS: ATROPINE OPHTH SOLN 1%, 5ML BC PRN ×2 (15:44→17:16)
[2019-04-02] MEDS ORDERED: SCOPOLAMINE PATCH, 1.5MG PATCH.TD72 TD SCH (17:30)
== END 2019-04-03 12:30 | disposition expired | DRG 871 ==
LOC: ED 13:44 → EDIP 14:59 → 4WST 17:25 → 3NW 03-29 18:27
PROVIDERS: ADMIT Internal Medicine; ATTEND Internal Medicine
DX: A41.9 Sepsis, unspecified organism (principal); K85.00 Idiopathic acute pancreatitis without necrosis or infection; E87.2 Acidosis; D68.9 Coagulation defect, unspecified; I74.10 Embolism and thrombosis of unspecified parts of aorta; I76 Septic arterial embolism; Z99.11 Dependence on respirator [ventilator] status; Z51.5 Encounter for palliative care; Z66 Do not resuscitate; G89.29 Other chronic pain; E87.6 Hypokalemia; F10.10 Alcohol abuse, uncomplicated; F11.10 Opioid abuse, uncomplicated; F12.90 Cannabis use, unspecified, uncomplicated; F17.210 Nicotine dependence, cigarettes, uncomplicated; G54.6 Phantom limb syndrome with pain; I10 Essential (primary) hypertension; J44.9 Chronic obstructive pulmonary disease, unspecified; K21.9 Gastro-esophageal reflux disease without esophagitis; Z79.52 Long term (current) use of systemic steroids; Z87.01 Personal history of pneumonia (recurrent); Z90.49 Acquired absence of other specified parts of digestive tract; Z98.51 Tubal ligation status; Z91.19 Patient's noncompliance with other medical treatment and regimen
CPT/HCPCS: 36415; 71045; 71260; 74018; 74176; 74177; 76700; 80053; 80061; 80307; 81001; 83605; 83690; 83735; 84100; 84145; 84443; 84484; 85025; 85379; 85384; 85520; 85610; 85730; 87040; 87086; 87147; 93005; 93306; G0378; J1650; J2270; J2543; J3370; J3411; J3480; Q9967; J0360; J2060; J3490; J7040; J7050; J7120; J7121